=== PATIENT | female | born 1970 | race Caucasian/White ===

== ENCOUNTER 2016-06-25 21:25 | Emergency (ER) | payer OTHER ==
[2016-06-25] MEDS ORDERED: KETOROLAC 60 MG/2 ML VIAL IM STA (23:05)
--- NOTE | 2016-06-25 23:08 | ED ---
Back Pain HPI - General Chief Complaint: Back Pain/Injury Stated Complaint: back and hip pain Time Seen by Provider: 06/25/16 22:48 Source: patient, RN notes reviewed Limitations: no limitations - History of Present Illness Initial Comments: Patient is a 46-year-old female presents emergency room for evaluation of left- sided low back pain. Patient states the pain began a few days ago. Patient states she was up heavy box at work began having worsening pain. Patient states she stands for 10 hours during the day which does not help her pain. Patient states she has been taking ibuprofen with no relief of symptoms. Patient states the pain starts in the left side of her lower back that radiates down into her groin. Patient has no significant tingling going down her legs. Patient denies saddle anesthesia. Patient denies urinary or fecal incontinence. Patient denies recent fall or trauma to her back. Patient denies weakness. Patient states the pain is worse with movement. Patient denies pain or burning during urination, trouble urinating or blood in urine. Patient denies history of kidney stones. Patient denies nausea or vomiting. Patient denies abdominal pain. - Related Data Home Medications Medication Instructions Recorded Confirmed Calcium Carbonate [Tums] 500 mg PO BID PRN 06/25/16 06/25/16 Ibuprofen [Motrin] 600 mg PO TID 06/25/16 06/25/16 Loratadine [Claritin] 10 mg PO DAILY 06/25/16 06/25/16 Propranolol HCl 80 mg PO BID 06/25/16 06/25/16 Previous Rx's Medication Instructions Recorded predniSONE 50 mg PO DAILY 4 Days 06/26/16 traMADol HCl [Ultram] 50 mg PO Q4H PRN #15 tab 06/26/16 Allergies Allergy/AdvReac Type Severity Reaction Status Date / Time No Known Allergies Allergy Verified 06/25/16 22:51 Review of Systems ROS Statement: Those systems with pertinent positive or pertinent negative responses have been documented in the HPI. ROS Other: All systems not noted in ROS Statement are negative. Past Medical History Past Medical History: Rheumatoid Arthritis (RA) Additional Past Medical History / Comment(s): palpitations History of Any Multi-Drug Resistant Organisms: None Reported Past Surgical History: Section Past Psychological History: Anxiety Smoking Status: Current every day smoker Past Alcohol Use History: None Reported Past Drug Use History: None Reported General Exam - General Exam Comments Initial Comments: Standing up in exam room uncomfortable secondary to pain, no acute distress. Limitations: no limitations General appearance: alert, in no apparent distress Head exam: Present: atraumatic, normocephalic, normal inspection Eye exam: Present: normal appearance ENT exam: Present: normal exam Neck exam: Present: normal inspection Respiratory exam: Present: normal lung sounds bilaterally. Absent: respiratory distress Cardiovascular Exam: Present: regular rate, normal rhythm, normal heart sounds Back exam: Present: paraspinal tenderness (Left-sided lumbosacral paraspinal tenderness on palpation.) Neurological exam: Present: alert, oriented X3, CN II-XII intact, normal gait Psychiatric exam: Present: normal affect, normal mood Skin exam: Present: warm, dry, intact, normal color. Absent: rash Course Vital Signs 06/25/16 06/26/16 21:55 00:42 Temperature 99.3 F 98.0 F Pulse Rate 89 70 Respiratory 20 18 Rate Blood Pressure 130/80 132/70 O2 Sat by Pulse 95 99 Oximetry Medical Decision Making - Medical Decision Making Patient is a 46-year-old female presents emergency room for evaluation of left- sided low back pain. Patient has no neuro deficits. Patient has slight relief after medications given. Will send patient home with prednisone and Ultram as needed for pain. Advised patient to follow-up with her primary care provider for further evaluation if symptoms are not improving. Advised patient to return for signs of bladder or bowel incontinence or saddle anesthesia. Patient states she understands everything that was discussed with her. Return parameters discussed. Case discussed with Dr. Munoz. - Lab Data Lab Results 06/25/16 06/25/16 Range/Units 23:23 23:23 Urine Color Yellow Urine Appearance Cloudy H (Clear) Urine pH 5.5 (5.0-8.0) Ur Specific [place] 1.027 (1.001-1.035) Urine Protein Trace H (Negative) Urine Glucose (UA) Negative (Negative) Urine Ketones Trace H (Negative) Urine Blood Negative (Negative) Urine Nitrite Negative (Negative) Urine Bilirubin Negative (Negative) Urine Urobilinogen <2.0 (<2.0) mg/dL Ur Leukocyte Esterase Large H (Negative) Urine RBC 11 H (0-5) /hpf Urine WBC 3 (0-5) /hpf Ur Squamous Epith Cells 16 H (0-4) /hpf Urine Bacteria Rare H (None) /hpf Urine Mucus Rare H (None) /hpf Urine HCG, Qual Not Detected (Not Detectd) - Radiology Data Radiology results: report reviewed, image reviewed Disposition Clinical Impression: Low back strain Disposition: HOME SELF-CARE Condition: Good Instructions: Acute Low Back Pain (ED) Additional Instructions: Take pain medications as directed. Ultimate ice and warm compresses. Please follow up with primary care provider in 1-2 days. If any new symptom arises or symptoms worsen, return to ER as soon as possible. Prescriptions: predniSONE 50 mg PO DAILY 4 Days traMADol HCl [Ultram] 50 mg PO Q4H PRN #15 tab PRN Reason: Pain Referrals: None,Stated [Primary Care Provider] - 1-2 days Time of Disposition: 00:30
[2016-06-25] MEDS: methylPREDNISolone SOD SUCCI 125 MG/2 ML VIAL IV STA ×2 (23:15→23:19)
[2016-06-25] MEDS ORDERED: methylPREDNISolone SOD SUCCI 125 MG/2 ML VIAL IM ONE (23:18)
[2016-06-25 23:35] LABS: Appearance,Urine Cloudy (Clear); Bacteria,Urine Rare /hpf; Bilirubin,Urine Negative (Negative); Glucose,Urine (UA) Negative (Negative); Ketones,Urine Trace (Negative); Leukocyte Esterase,Urine Large (Negative); Mucus,Urine Rare /hpf; Nitrite,Urine Negative (Negative); PH, Urine 5.5 (5.0-8.0); Particle Count 8419; Protein,Urine Trace (Negative); RBC,Urine 11 /hpf (0-5); Specific Gravity,Urine 1.027 (1.001-1.035); Squamous Epithelial Cell,Urine 16 /hpf (0-4); UA Billing (MACRO vs. MICRO) MICRO; Urobilinogen,Urine <2.0 mg/dL (<2.0); WBC,Urine 3 /hpf (0-5)
--- NOTE | 2016-06-26 00:23 | XR ---
EXAM: XR Lumbar Spine, 4 or 5 Views. CLINICAL HISTORY: Reason: Pain TECHNIQUE: Frontal, lateral and oblique views of the lumbar spine. COMPARISON: No relevant prior studies available. FINDINGS: There are 5 nonrib-bearing lumbar type vertebra in normal alignment. Mild compression deformities at the L1 and L2 levels are likely chronic, but clinical correlation is advised. Multilevel disc degeneration is more pronounced in the upper lumbar and lower thoracic spine with disc space narrowing and endplate osteophytic spurring. Soft tissues are unremarkable. IMPRESSION: Mild L1 and L2 compression deformities are likely chronic, but clinical correlation is recommended. Lower thoracic and upper lumbar spinal disc degeneration.
[2016-06-26 00:42] VITALS: BP 132/70; PULSE 70; RESP 18; TEMP 98
== END 2016-06-26 00:42 | disposition home or self-care (01) ==
LOC: EC 21:25
DX: S39.012A Strain of muscle, fascia and tendon of lower back, initial encounter (principal); M25.552 Pain in left hip; R10.32 Left lower quadrant pain; M06.9 Rheumatoid arthritis, unspecified; F17.200 Nicotine dependence, unspecified, uncomplicated; Z79.1 Long term (current) use of non-steroidal anti-inflammatories (NSAID); Z79.899 Other long term (current) drug therapy; Z86.79 Personal history of other diseases of the circulatory system; X50.0XXA Overexertion from strenuous movement or load, initial encounter; Y92.69 Other specified industrial and construction area as the place of occurrence of the external cause
CPT/HCPCS: 81001; 81025; 72110; 99283; 96372 ×2; J2930; J1885

== ENCOUNTER 2016-06-27 21:11 | Emergency (ER) | payer OTHER ==
[2016-06-27] MEDS ORDERED: HYDROmorphone 1 MG/ML 1 ML SYRINGE IM STA (22:25)
[2016-06-27] MEDS ORDERED: ORPHENADRINE 30 MG/ML 2 ML VIAL IM STA (22:26)
--- NOTE | 2016-06-27 23:39 | XR ---
EXAM: XR Left Knee, 3 views CLINICAL HISTORY: Reason: Pain TECHNIQUE: Multiple views (6 images) of the left knee. COMPARISON: No relevant prior studies available. FINDINGS: Bones/joints: Unremarkable. No acute fracture. No dislocation. Soft tissues: Unremarkable. IMPRESSION: Normal left knee
--- NOTE | 2016-06-27 23:53 | XR ---
EXAM: XR Left Hip With Pelvis When Performed, 2 or 3 Views CLINICAL HISTORY: Reason: Pain TECHNIQUE: Multiple views of the left hip (4 images total submitted) COMPARISON: No relevant prior studies available. FINDINGS: Bones/joints: Unremarkable. No acute fracture. No dislocation. Soft tissues: Unremarkable. IMPRESSION: Normal left hip
--- NOTE | 2016-06-28 00:01 | ED ---
Fall HPI - General Chief Complaint: Fall Stated Complaint: Knee Pain/Slip and fall Time Seen by Provider: 06/27/16 22:17 Source: patient, RN notes reviewed, old records reviewed Mode of arrival: ambulatory - History of Present Illness Initial Comments: This is a 46 year old female with left knee pain and hip pain after falling in the shower. She states she was seen in the for acute back pain, was discharged with flexeril 2 days ago. She reports that is not helping. she states the pain is relieved best with standing and leaning over, she states tshe can bear weight on her leg. She denies any saddle anesthesias. She reports she fell on her knee and twister her back in maxi same movement. She reports pain is a 10/10. Domingo is worse with any pressure on the back. - Related Data Home Medications Medication Instructions Recorded Confirmed Ibuprofen [Motrin] 600 mg PO TID 06/25/16 06/27/16 Loratadine [Claritin] 10 mg PO DAILY 06/25/16 06/27/16 Propranolol HCl 80 mg PO BID 06/25/16 06/27/16 Previous Rx's Medication Instructions Recorded predniSONE 50 mg PO DAILY 4 Days 06/26/16 traMADol HCl [Ultram] 50 mg PO Q4H PRN #15 tab 06/26/16 HYDROcodone/APAP 10-325MG [[place] 1 tab PO Q6H PRN #15 tab 06/27/16 10-325] Allergies Allergy/AdvReac Type Severity Reaction Status Date / Time No Known Allergies Allergy Verified 06/27/16 22:22 Review of Systems ROS Statement: Those systems with pertinent positive or pertinent negative responses have been documented in the HPI. ROS Other: All systems not noted in ROS Statement are negative. Past Medical History Past Medical History: Rheumatoid Arthritis (RA) Additional Past Medical History / Comment(s): palpitations, migraines History of Any Multi-Drug Resistant Organisms: None Reported Past Surgical History: Section Past Psychological History: Anxiety Smoking Status: Current every day smoker Past Alcohol Use History: None Reported Past Drug Use History: None Reported General Exam - General Exam Comments Initial Comments: 46 year old female, in discomfort. Limitations: no limitations General appearance: alert, in no apparent distress Head exam: Present: atraumatic (d), normocephalic, normal inspection Eye exam: Present: normal appearance, PERRL, EOMI. Absent: scleral icterus, conjunctival injection, periorbital swelling ENT exam: Present: normal exam, mucous membranes moist Neck exam: Present: normal inspection. Absent: tenderness, meningismus, lymphadenopathy Respiratory exam: Present: normal lung sounds bilaterally. Absent: respiratory distress, wheezes, rales, rhonchi, stridor Cardiovascular Exam: Present: regular rate, normal rhythm, normal heart sounds. Absent: systolic murmur, diastolic murmur, rubs, gallop, clicks GI/Abdominal exam: Present: soft, normal bowel sounds. Absent: distended, tenderness, guarding, rebound, rigid Left Hip exam: Present: normal inspection, full ROM Upper Leg exam: Present: normal inspection, full ROM Knee exam: Present: normal inspection, tenderness. Absent: full ROM Lower Leg exam: Present: normal inspection, full ROM Ankle exam: Present: normal inspection, full ROM Foot/Toe exam: Present: normal inspection Neurovascular tendon exam: Present: no vascular compromise Back exam: Present: normal inspection Neurological exam: Present: alert, oriented X3, CN II-XII intact Psychiatric exam: Present: normal affect, normal mood Course Vital Signs 06/27/16 06/28/16 21:47 00:13 Temperature 99.4 F 98.1 F Pulse Rate 70 62 Respiratory 20 18 Rate Blood Pressure 174/79 134/86 O2 Sat by Pulse 100 99 Oximetry Medical Decision Making - Medical Decision Making 46 year old with left hip and knee painand back pain after falling out of the shower. WAs seen 2 days ago in for acute back pain, pain not managed with flexeril. Patient hip and knee xray are negative. Patient does have limited range of motion and unable to fully extend left knee. Patient placedin knee immobilizer. discussed follow up with orthopedic. Discussed taking norco for breakthough pain and to continue flexeril, motrin, and tylenol. Patient agrees to treatment plan and will comply. Disposition Clinical Impression: Knee sprain, Hip pain Disposition: HOME SELF-CARE Condition: Good Instructions: Knee Sprain (ED) Additional Instructions: Patient advised to follow up with orthopedic physician on thursday. Remain in knee immobilizer. Patient should rest, ice, and elevate extremety. Return to ER if worsening signs or symptoms occur. Prescriptions: HYDROcodone/APAP 10-325MG [[place] 10-325] 1 tab PO Q6H PRN #15 tab PRN Reason: Pain Referrals: Jane Evans MD [Primary Care Provider] - 1-2 days Mitchell Jansen MD [STAFF PHYSICIAN] - 1-2 days Time of Disposition: 23:59
[2016-06-28 00:16] VITALS: BP 134/86; PULSE 62; RESP 18; TEMP 98.1
[2016-06-28] MEDS ORDERED: HYDROcodone/APAP 7.5-325MG 1 EACH TAB PO ONE (00:26)
== END 2016-06-28 00:30 | disposition home or self-care (01) ==
LOC: EC 21:11
DX: S83.92XA Sprain of unspecified site of left knee, initial encounter (principal); M25.552 Pain in left hip; M06.9 Rheumatoid arthritis, unspecified; Z79.1 Long term (current) use of non-steroidal anti-inflammatories (NSAID); Z79.899 Other long term (current) drug therapy; W01.0XXA Fall on same level from slipping, tripping and stumbling without subsequent striking against object, initial encounter
CPT/HCPCS: 99283; 96372 ×2; 73502; 73562; J2360; J1170

== ENCOUNTER → 2016-10-10 | Outpatient (CLI) | payer OTHER ==
--- NOTE | 2016-10-20 09:55 | MM ---
Reason for exam: screening (asymptomatic). Last mammogram was performed 4 years and 1 month ago. Physical Findings: A clinical breast exam by your physician is recommended on an annual basis and results should be correlated with mammographic findings. MG Screening Mammo w CAD Bilateral CC and MLO view(s) were taken. Prior study comparison: August 29, 2012, mammogram, performed at [facility]. There are scattered fibroglandular densities. No significant changes when compared with prior studies. ASSESSMENT: Benign, BI-RAD 2 RECOMMENDATION: Routine screening mammogram of both breasts in 1 year.
== END | disposition home or self-care (01) ==
LOC: RADMAMWWP 13:51
PROVIDERS: ATTEND Family Medicine
DX: Z12.31 Encounter for screening mammogram for malignant neoplasm of breast (principal)

== ENCOUNTER 2017-01-23 15:38 | Emergency (ER) | payer OTHER ==
[2017-01-23] MEDS ORDERED: diphenhydrAMINE 50 MG/ML 1 ML VIAL IVP STA (16:52)
[2017-01-23] MEDS ORDERED: SODIUM CHLORIDE 0.9% 1,000 ML IV STA (16:52)
[2017-01-23] MEDS ORDERED: KETOROLAC 30 MG/ML 1 ML VIAL IVP STA (16:52)
[2017-01-23] MEDS ORDERED: METOCLOPRAMIDE 5 MG/ML 2 ML VIAL IVP STA (16:52)
--- NOTE | 2017-01-23 16:59 | ED ---
General Adult HPI - General Chief complaint: Headache Stated complaint: Headache/Vomiting Time Seen by Provider: 01/23/17 16:47 Source: patient, RN notes reviewed Mode of arrival: ambulatory Limitations: no limitations - History of Present Illness Initial comments: Patient 46-year-old female with a significant past medical history for migraines , who presents emergency room today with a chief complaint of migraine headache that began last night approximately midnight. Patient does admit that located in the front. Does admit to symptoms of nausea vomiting. Doesn't photosensitivity. States that symptoms are consistent migraines is had in the past. Denies any other complaints or associated symptoms currently. Patient denies any recent fever, chills, shortness of breath, chest pain, back pain, numbness or tingling, dysuria or hematuria, constipation or diarrhea, visual changes, or any other complaints. - Related Data Home Medications Medication Instructions Recorded Confirmed Ibuprofen [Motrin] 600 mg PO TID PRN 06/25/16 01/23/17 Propranolol HCl 80 mg PO DAILY 06/25/16 01/23/17 Cholecalciferol [Vitamin D3] 1,000 unit PO HS 01/23/17 01/23/17 Cyanocobalamin [Vitamin B-12] 500 mcg PO HS 01/23/17 01/23/17 Loratadine [Claritin] 10 mg PO DAILY 01/23/17 01/23/17 Vitamin E 30iu 30 units PO HS 01/23/17 01/23/17 buPROPion HCL [Wellbutrin XL] 300 mg PO DAILY 01/23/17 01/23/17 busPIRone HCl [Buspar] 10 mg PO BID 01/23/17 01/23/17 cloNIDine HCL [Catapres] 0.2 mg PO HS 01/23/17 01/23/17 Allergies Allergy/AdvReac Type Severity Reaction Status Date / Time No Known Allergies Allergy Verified 01/23/17 16:44 Review of Systems ROS Statement: Those systems with pertinent positive or pertinent negative responses have been documented in the HPI. ROS Other: All systems not noted in ROS Statement are negative. Past Medical History Past Medical History: Rheumatoid Arthritis (RA) Additional Past Medical History / Comment(s): palpitations, migraines History of Any Multi-Drug Resistant Organisms: None Reported Past Surgical History: Section Past Psychological History: Anxiety Smoking Status: Current every day smoker Past Alcohol Use History: None Reported Past Drug Use History: None Reported General Exam - General Exam Comments Initial Comments: General: The patient is awake and alert, in no distress, and does not appear acutely ill. Eye: Pupils are equal, round and reactive to light, extra-ocular movements are intact. No nystagmus. There is normal conjunctiva bilaterally. No signs of icterus. Ears, nose, mouth and throat: There are moist mucous membranes and no oral lesions. Neck: The neck is supple, there is no tenderness or JVD. Cardiovascular: There is a regular rate and rhythm. No murmur, rub or gallop is appreciated. Respiratory: Lungs are clear to auscultation, respirations are non-labored, breath sounds are equal. No wheezes, stridor, rales, or rhonchi. Gastrointestinal: Soft, non-distended, non-tender abdomen without masses or organomegaly noted. There is no rebound or guarding present. No CVA tenderness. Bowel sounds are unremarkable. Musculoskeletal: Normal ROM, no tenderness. Strength 5/5. Sensation intact. Pulses equal bilaterally 2+. Neurological: A&O x 3. CN II-XII intact, There are no obvious motor or sensory deficits. Coordination appears grossly intact. Speech is normal. Skin: Skin is warm and dry and no rashes or lesions are noted. Psychiatric: Cooperative, appropriate mood & affect, normal judgment. Limitations: no limitations Course Vital Signs 01/23/17 15:43 Temperature 97 F L Pulse Rate 83 Respiratory 18 Rate Blood Pressure 119/59 O2 Sat by Pulse 99 Oximetry Medical Decision Making - Medical Decision Making Patient reexamined at this time shows no signs of distress. Patient was given Reglan, Toradol, Benadryl along with saline bolus here in emergency room. Feeling much better at this time. She admits that she feels ready to be discharged. She states she will follow-up the family doctor. Advised to use ibuprofen for any rebound headaches. Advised return for any other concerns. Disposition Clinical Impression: Migraine Disposition: HOME SELF-CARE Condition: Good Instructions: Migraine Headache (ED) Additional Instructions: Please use medication as discussed. Please follow-up with family doctor in the next 2 days of symptoms have not improved. Please return to emergency room if the symptoms increase or worsen or for any other concerns. Referrals: Nonstaff,Physician [REFERRING] - 1-2 days Time of Disposition: 17:48
[2017-01-23 17:59] VITALS: BP 131/82; PULSE 72; RESP 156; TEMP 98.5
== END 2017-01-23 17:59 | disposition home or self-care (01) ==
LOC: EC 15:38
DX: G43.909 Migraine, unspecified, not intractable, without status migrainosus (principal); F41.9 Anxiety disorder, unspecified; F17.200 Nicotine dependence, unspecified, uncomplicated; Z79.899 Other long term (current) drug therapy
CPT/HCPCS: 99283; 96374; 96375 ×2; 96361; J1200; J2765; J1885

== ENCOUNTER → 2018-05-04 | Outpatient (CLI) | payer OTHER ==
[2018-05-04 10:48] LABS: Basophils # (A) 0.1 k/uL (0-0.2); Basophils % (A) 1 %; Eosinophils # (A) 0.5 k/uL (0-0.7); Eosinophils % (A) 5 %; HCT 40.5 % (34.0-46.0); HGB 12.7 gm/dL (11.4-16.0); Lymphocytes # (A) 1.9 k/uL (1.0-4.8); Lymphocytes % (A) 19 %; MCH 27.4 pg (25.0-35.0); MCHC 31.4 g/dL (31.0-37.0); MCV 87.3 fL (80.0-100.0); Mean Platelet Volume 6.8; Monocytes # (A) 0.4 k/uL (0-1.0); Monocytes % (A) 4 %; Neutrophils # (A) 6.9 k/uL (1.3-7.7); Neutrophils % (A) 69 %; Platelet Count 413 k/uL (150-450); RBC 4.64 m/uL (3.80-5.40); RDW 13.3 % (11.5-15.5); WBC 9.9 k/uL (3.8-10.6)
[2018-05-04 18:03] LABS: Albumin 4.3 g/dL (3.80-4.90); Albumin/Globulin Ratio 2.05 (1.60-3.17); Anion Gap 5.6 mmol/L (4.00-12.00); Calcium 9.2 mg/dL (8.7-10.3); Carbon Dioxide 24.4 mmol/L (21.6-31.8); Globulin 2.1 g/dL (1.6-3.3); LDL Cholesterol,Calculated 103.2 mg/dL (0.0-131.0); Potassium 4.7 mmol/L (3.5-5.5); Total Bilirubin 0.4 mg/dL (0.3-1.2); Total Protein 6.4 g/dL (6.2-8.2); VLDL Calculation 11.8 mg/dL (5.00-40.00)
== END | disposition home or self-care (01) ==
LOC: LABWHC1 10:04
PROVIDERS: ATTEND Nurse Practitioner
DX: G43.111 Migraine with aura, intractable, with status migrainosus (principal); M72.2 Plantar fascial fibromatosis; F41.0 Panic disorder [episodic paroxysmal anxiety]; R12 Heartburn; E66.01 Morbid (severe) obesity due to excess calories
CPT/HCPCS: 36415; 80053; 80061; 85025

== ENCOUNTER 2019-01-24 13:19 | Emergency (ER) | payer SELFPAY ==
[2019-01-24 13:37] VITALS: TEMP 97.7
[2019-01-24] MEDS ORDERED: METOCLOPRAMIDE 5 MG/ML 2 ML VIAL IVP STA (13:53)
[2019-01-24] MEDS ORDERED: diphenhydrAMINE 50 MG/ML 1 ML VIAL IVP STA (13:53)
[2019-01-24] MEDS ORDERED: KETOROLAC 30 MG/ML 1 ML VIAL IVP STA (13:53)
[2019-01-24] MEDS ORDERED: SODIUM CHLORIDE 0.9% 1,000 ML IV STA ×2 (13:53)
[2019-01-24] MEDS ORDERED: ORPHENADRINE 30 MG/ML 2 ML VIAL IVP STA (13:54)
--- NOTE | 2019-01-24 14:14 | ED ---
Headache HPI - General Source: RN notes reviewed, old records reviewed Mode of arrival: ambulatory Limitations: no limitations <Yumiko Tristanily - Last Filed: 01/24/19 14:59> <Rut Hughes - Last Filed: 01/29/19 14:28> - General Chief Complaint: Headache Stated Complaint: headache Time Seen by Provider: 01/24/19 13:38 - History of Present Illness Initial Comments: Alexia is a 40-year-old female presents today for evaluation for left-sided headache. She said history migraines past, states this is not the worse hea dache of her life. Patient states that she does feel slightly abnormal with tingling and numbness sensation over her arms, left side of her face. She denies any muscle weakness. She reports this occurred to be worse they want she was at work today. 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 (Ami Tristan) - Related Data Home Medications Medication Instructions Recorded Confirmed Ibuprofen [Motrin] 600 mg PO TID PRN 06/25/16 01/23/17 Propranolol HCl 80 mg PO DAILY 06/25/16 01/23/17 Cholecalciferol [Vitamin D3] 1,000 unit PO HS 01/23/17 01/23/17 Cyanocobalamin [Vitamin B-12] 500 mcg PO HS 01/23/17 01/23/17 Loratadine [Claritin] 10 mg PO DAILY 01/23/17 01/23/17 Vitamin E 30iu 30 units PO HS 01/23/17 01/23/17 buPROPion HCL [Wellbutrin XL] 300 mg PO DAILY 01/23/17 01/23/17 busPIRone HCl [Buspar] 10 mg PO BID 01/23/17 01/23/17 cloNIDine HCL [Catapres] 0.2 mg PO HS 01/23/17 01/23/17 Previous Rx's Medication Instructions Recorded Metoclopramide [Reglan] 10 mg PO ACHS #12 tab 01/24/19 Allergies Allergy/AdvReac Type Severity Reaction Status Date / Time No Known Allergies Allergy Verified 01/24/19 13:37 Review of Systems ROS Other: All systems not noted in ROS Statement are negative. <Ami Tristan - Last Filed: 01/24/19 14:59> ROS Other: All systems not noted in ROS Statement are negative. <Rut Hughes - Last Filed: 01/29/19 14:28> ROS Statement: Those systems with pertinent positive or pertinent negative responses have been documented in the HPI. Past Medical History Past Medical History: Rheumatoid Arthritis (RA) Additional Past Medical History / Comment(s): palpitations, migraines History of Any Multi-Drug Resistant Organisms: None Reported Past Surgical History: Section Past Psychological History: Anxiety Smoking Status: Current every day smoker Past Alcohol Use History: None Reported Past Drug Use History: None Reported <Ami Tristan - Last Filed: 01/24/19 14:59> General Exam Limitations: no limitations Head exam: Present: atraumatic, normocephalic, normal inspection Eye exam: Present: normal appearance, PERRL, EOMI. Absent: scleral icterus, conjunctival injection, periorbital swelling ENT exam: Present: normal exam, mucous membranes moist Neck exam: Present: normal inspection. Absent: tenderness, meningismus, lymphadenopathy Respiratory exam: Present: normal lung sounds bilaterally. Absent: respiratory distress, wheezes, rales, rhonchi, stridor Cardiovascular Exam: Present: regular rate GI/Abdominal exam: Present: soft, normal bowel sounds. Absent: distended, tenderness, guarding, rebound, rigid Extremities exam: Present: normal inspection, full ROM, normal capillary refill. Absent: tenderness, pedal edema, joint swelling, calf tenderness Back exam: Present: normal inspection Neurological exam: Present: alert, oriented X3, CN II-XII intact Expanded Patient oriented to: Present: person, place, time Speech: Present: fluid speech Cranial nerves: EOM's Intact: Normal Cerebellar function: Finger to Nose: Normal Upper motor neuron: Pronator Drift: Normal Sensory exam: Upper Extremity Light Touch: Normal (Plans the paresthesias over her upper extremities but her ports that she can feel me touch of her fingers and hands.), Lower Extremity Light Touch: Normal Motor strength exam: RUE: 5, LUE: 5, RLE: 5, LLE: 5 Eye Response: (4) open spontaneously Motor Response: (6) obeys commands Verbal Response: (5) oriented Gabino Total: 15 Psychiatric exam: Present: normal affect, normal mood Skin exam: Present: warm, dry, intact, normal color <Ami Tristan - Last Filed: 01/24/19 14:59> - General Exam Comments Initial Comments: 48-year-old female. Alert and oriented. No distress. (Ami Tristan) Course Vital Signs 01/24/19 01/24/19 13:35 15:57 Temperature 97.7 F Pulse Rate 78 67 Respiratory 18 16 Rate Blood Pressure 135/71 133/79 O2 Sat by Pulse 99 100 Oximetry Medical Decision Making - Lab Data Result diagrams: 01/24/19 14:06 01/24/19 14:06 - Radiology Data Radiology results: report reviewed <Ami Tristan - Last Filed: 01/24/19 14:59> - Lab Data Result diagrams: 01/24/19 14:06 01/24/19 14:06 <Rut Hughes - Last Filed: 01/29/19 14:28> - Medical Decision Making Is a 40-year-old female presents today with complaints of a headache, starting last night into this morning. Continue [id number] medications on a relief. She lives in some paresthesias over her hands and face were also concerned that this possibly was related to anxiety. She no focal or neurological deficits. Patient was given IV fluids of migraine cocktail. On reevaluation she is resting comfortably in bed and complains of no other symptoms. CT brain completed and negative for acute process. I discussed the Patient can follow-up with her primary care doctor or the Patient for nausea medicine as needed for any further migraine headaches tend treatment. Discussed prompt follow-up with her primary care doctor. All questions were answered. (HaileyAmi kuo) I was available for consultation in the emergency department. The history and physical exam were done by the midlevel provider. I was consulted for this patients care. I reviewed the case with the midlevel provider and based on their presentation of the patient, I agree with the assessment, medical decision making and plan of care as documented. Chart was dictated using [employer] dictation software. Attempts were made to correct any dictation errors however some typographical errors may persist. (Rut Hughes) - Lab Data Lab Results 01/24/19 01/24/19 01/24/19 Range/Units 14:06 14:06 14:06 WBC 9.6 (3.8-10.6) k/uL RBC 4.47 (3.80-5.40) m/uL Hgb 13.2 (11.4-16.0) gm/dL Hct 39.5 (34.0-46.0) % MCV 88.4 (80.0-100.0) fL MCH 29.4 (25.0-35.0) pg MCHC 33.3 (31.0-37.0) g/dL RDW 12.7 (11.5-15.5) % Plt Count 441 (150-450) k/uL PT 9.7 (9.0-12.0) sec INR 0.9 (<1.2) APTT 26.1 (22.0-30.0) sec Sodium 141 (137-145) mmol/L Potassium 3.8 (3.5-5.1) mmol/L Chloride 107 (98-107) mmol/L Carbon Dioxide 25 (22-30) mmol/L Anion Gap 9 mmol/L BUN 17 (7-17) mg/dL Creatinine 0.94 (0.52-1.04) mg/dL Est GFR (CKD-EPI)AfAm 83 (>60 ml/min/1.73 sqM) Est GFR (CKD-EPI)NonAf 72 (>60 ml/min/1.73 sqM) Glucose 113 H (74-99) mg/dL Calcium 9.7 (8.4-10.2) mg/dL Total Bilirubin 0.4 (0.2-1.3) mg/dL AST 28 (14-36) U/L ALT 29 (9-52) U/L Alkaline Phosphatase 58 (38-126) U/L Total Protein 7.5 (6.3-8.2) g/dL Albumin 4.5 (3.5-5.0) g/dL - Radiology Data CT of the brain is negative for any acute process. (Ami Tristan) Disposition Is patient prescribed a controlled substance at d/c from ED?: No Time of Disposition: 15:02 <Ami Tristan - Last Filed: 01/24/19 14:59> <Rut Hughes - Last Filed: 01/29/19 14:28> Clinical Impression: Migraine Disposition: HOME SELF-CARE Condition: Good Instructions (If sedation given, give patient instructions): Acute Headache (ED) Additional Instructions: Patient advised to rest, remain hydrated. Alternate between Motrin and Tylenol for headache. Follow-up with your primary care physician. Return to the emergency department if any alarming signs or symptoms occur. Prescriptions: Metoclopramide [Reglan] 10 mg PO ACHS #12 tab Referrals: None,Stated [Primary Care Provider] - 1-2 days Paula Sung MD [STAFF PHYSICIAN] - 1-2 days
[2019-01-24 14:23] LABS: HCT 39.5 % (34.0-46.0); HGB 13.2 gm/dL (11.4-16.0); MCH 29.4 pg (25.0-35.0); MCHC 33.3 g/dL (31.0-37.0); MCV 88.4 fL (80.0-100.0); Mean Platelet Volume 7.1; Platelet Count 441 k/uL (150-450); RBC 4.47 m/uL (3.80-5.40); RDW 12.7 % (11.5-15.5); WBC 9.6 k/uL (3.8-10.6)
--- NOTE | 2019-01-24 14:31 | CT ---
EXAMINATION TYPE: CT brain wo con DATE OF EXAM: 01/24/2019 COMPARISON: None HISTORY: Dizziness and headache CT DLP: 1052.[address] of the brain was performed. The ventricles, basal cisterns and sulci overlying the cerebral convexities demonstrate a normal appe arance. There is no evidence for intracranial hemorrhage or sulcal effacement. No mass effects are seen. Osseous calvarium is intact. If symptoms persist consider MRI as clinically warranted. IMPRESSION: 1. No acute intracranial process is seen at this time.
[2019-01-24 14:33] LABS: Albumin 4.5 g/dL (3.5-5.0); Calcium 9.7 mg/dL (8.4-10.2); Potassium 3.8 mmol/L (3.5-5.1); Total Bilirubin 0.4 mg/dL (0.2-1.3); Total Protein 7.5 g/dL (6.3-8.2)
[2019-01-24 14:39] LABS: INR 0.9 (<1.2); Partial Thromboplastin Time 26.1 sec (22.0-30.0); Prothrombin Time 9.7 sec (9.0-12.0)
[2019-01-24 15:59] VITALS: BP 133/79; PULSE 67; RESP 16
== END 2019-01-24 15:59 | disposition home or self-care (01) ==
LOC: EC 13:19
DX: G40.909 Epilepsy, unspecified, not intractable, without status epilepticus (principal); R20.2 Paresthesia of skin; F41.9 Anxiety disorder, unspecified; M06.9 Rheumatoid arthritis, unspecified; F17.200 Nicotine dependence, unspecified, uncomplicated; Z79.899 Other long term (current) drug therapy
CPT/HCPCS: 36415; 80053; 85027; 85610; 85730; 70450; 99284; 96374; 96375 ×3; 96361; J1200; J2360; J2765; J1885

== ENCOUNTER → 2019-07-13 | Outpatient (CLI) | payer MEDICAID | END | disposition home or self-care (01) | LOC: LABWHC1 13:52 | PROVIDERS: ATTEND Pediatrics Pediatric Infectious Diseases | DX: U07.1 COVID-19 (principal) | CPT/HCPCS: 87635 ==

== ENCOUNTER → 2021-01-23 | Outpatient (CLI) | payer MEDICAID, OTHER | END | disposition home or self-care (01) | LOC: LABWHC1 10:57 | PROVIDERS: ATTEND Emergency Medicine | DX: Z20.822 Contact with and (suspected) exposure to COVID-19 (principal) | CPT/HCPCS: 87635 ==

== ENCOUNTER → 2021-01-24 | Outpatient (CLI) | payer MEDICAID, OTHER | END | disposition home or self-care (01) | LOC: LABMAIN 12:40 | PROVIDERS: ATTEND Emergency Medicine | DX: Z20.822 Contact with and (suspected) exposure to COVID-19 (principal) | CPT/HCPCS: 87635 ==

== ENCOUNTER → 2021-04-08 | Outpatient (CLI) | payer MEDICAID ==
[2021-04-08 11:12] LABS: Hepatitis A Antibody IgM Nonreactive (Nonreactive); Hepatitis B Core IgM Nonreactive (Nonreactive); Hepatitis C IgG Antibody Nonreactive (Nonreactive)
[2021-04-08 11:52] LABS: HCT 40.1 % (37.2-46.3); MCH 28.1 pg (27.0-32.0); MCHC 32.4 g/dL (32.0-37.0); MCV 86.8 fL (80.0-97.0); Mean Platelet Volume 10.9 fL (9.5-12.2); NRBC Per 100 WBC 0 /100 WBCS (0.0-0.0); Platelet Count 389 X 10*3/uL (140-440); RBC 4.62 X 10*6/uL (4.10-5.20); RDW 13.4 % (11.5-14.5); WBC 8.54 X 10*3/uL (4.50-10.00)
[2021-04-08 12:32] LABS: ALT 24 U/L (8-44); AST 24 U/L (13-35); African American GFR (CKD) 85.8 (60.0-200.0); Albumin 4.3 g/dL (3.8-4.9); Albumin/Globulin Ratio 1.87 (1.60-3.17); Alkaline Phosphatase 45 U/L (41-126); BUN/Creat Ratio 19.44 Ratio (12.00-20.00); Blood Urea Nitrogen 17.5 mg/dL (9.0-27.0); Calcium 9.4 mg/dL (8.7-10.3); Carbon Dioxide 21.9 mmol/L (20.0-27.5); Chloride 106 mmol/L (96-109); Chol/HDL Ratio 2.88 Ratio; Globulin 2.3 g/dL (1.6-3.3); Glucose 104 mg/dL (70-110); LDL Cholesterol,Calculated 102.7 mg/dL (0.0-131.0); Potassium 4.6 mmol/L (3.5-5.5); Sodium 140 mmol/L (135-145); Total Bilirubin <0.20 mg/dL (0.30-1.20); Total Protein 6.6 g/dL (6.2-8.2)
[2021-04-08 13:04] LABS: Rheumatoid Factor, Qnt <10 IU/mL (0-15)
[2021-04-08 13:36] LABS: % Iron Saturation 12.25 (12.00-45.00); Iron 49 ug/dL (50-170); Total Iron Binding Capacity 403 ug/dL (228-460)
[2021-04-08 13:47] LABS: C Reactive Protein <0.30 mg/dL (0.00-0.80)
[2021-04-08 15:52] LABS: Erythrocyte Sedimentation Rate 9 mm/Hr (0-30)
== END | disposition home or self-care (01) ==
LOC: LABWHC1 07:31
PROVIDERS: ATTEND Nurse Practitioner Family
DX: E61.1 Iron deficiency (principal); E55.9 Vitamin D deficiency, unspecified; E78.00 Pure hypercholesterolemia, unspecified; M25.50 Pain in unspecified joint; R73.01 Impaired fasting glucose; R53.83 Other fatigue; Z79.899 Other long term (current) drug therapy
CPT/HCPCS: 36415; 80053; 80061; 82306; 83036; 83540; 83550; 84443; 85027; 85652; 86038; 86140; 86431; 86705; 86709; 86803

== ENCOUNTER → 2022-08-05 | Outpatient (CLI) | payer MEDICAID ==
[2022-08-05 11:14] LABS: ALT 34 U/L; AST 23 U/L; Albumin 4.4 d/dL; Albumin/Globulin Ratio 1.63 Ratio; Alkaline Phosphatase 51 U/L; BUN/Creat Ratio 18.67 Ratio; Blood Urea Nitrogen 16.8 mg/dL; Calcium 9.5 mg/dL; Carbon Dioxide 24.9 mmol/L; Chloride 104 mmol/L; Chol/HDL Ratio 2.99 Ratio; Globulin 2.7 d/dL; Glucose 107 mg/dL; LDL Cholesterol,Calculated 104.7 mg/dL; Potassium 4.8 mmol/L; Sodium 140 mmol/L; Total Bilirubin 0.4 mg/dL; Total Protein 7.1 d/dL
== END | disposition home or self-care (01) ==
LOC: LABWHC1 07:03
PROVIDERS: ATTEND Nurse Practitioner
DX: Z00.00 Encounter for general adult medical examination without abnormal findings (principal); F41.9 Anxiety disorder, unspecified; R51.9 Headache, unspecified
CPT/HCPCS: 36415; 80053; 80061; 83036; 84443

== ENCOUNTER → 2022-10-15 | Outpatient (CLI) | payer OTHER ==
--- NOTE | 2022-10-15 10:25 | XR ---
EXAMINATION TYPE: XR knee complete RT DATE OF EXAM: 10/15/2022 COMPARISON: None HISTORY: Sudden sharp pain TECHNIQUE: 3 view right knee FINDINGS: Minimal medial and lateral tibial plateau spurs and medial and lateral femoral condylar spu rs are noted. No joint effusion is evident. Tiny posterior patellar spurs are present superiorly and inferiorly. No acute fractures are evident. Joint spaces appear preserved. Follow up exams can be performed as cl inically indicated. MRI can be performed if clinically indicated. IMPRESSION: 1. No acute osseous abnormality radiographically apparent. 2. Minimal degenerative joint changes right knee
== END | disposition home or self-care (01) ==
LOC: RADXRMAIN 09:31
PROVIDERS: ATTEND Emergency Medicine
DX: S83.91XA Sprain of unspecified site of right knee, initial encounter (principal); M17.11 Unilateral primary osteoarthritis, right knee; X58.XXXA Exposure to other specified factors, initial encounter

== ENCOUNTER → 2022-10-21 | Outpatient (CLI) | payer OTHER ==
--- NOTE | 2022-10-21 13:20 | MR ---
EXAMINATION TYPE: MR knee RT wo con DATE OF EXAM: 10/21/2022 COMPARISON: None HISTORY: Rt knee pain TECHNIQUE: Multiplanar, multisequence imaging of the right knee is performed without IV contrast. FINDINGS: MEDIAL MENISCUS: Anterior and posterior horns are intact without tear. LATERAL MENISCUS: Anterior and posterior horns are intact without tear. CRUCIATE LIGAMENTS: The anterior and posterior cruciate ligaments are intact and unremarkable. COLLATERAL LIGAMENTS: The medial collateral ligament and lateral collateral ligament complex are inta ct and unremarkable. EXTENSOR MECHANISM: Visualized quadriceps and patellar tendons are intact. EFFUSION: Small patellar joint effusion noted. POPLITEAL CYST: No popliteal/roman cyst. TRICOMPARTMENT SPACES: Moderate medial tibiofemoral joint space narrowing and patellofemoral joint sp ronald narrowing. Spur formation about the margins of the femoral condyles and tibial plateaus. CARTILAGE: Small chondral defect medial femoral condyle. BONE MARROW SIGNAL: No focal abnormal marrow signal is appreciated. OTHER: No additional significant abnormality is appreciated. IMPRESSION: 1. Changes of osteoarthritis. Small chondral defect medial femoral condyle.
== END | disposition home or self-care (01) ==
LOC: RADMRIMAIN 11:02
PROVIDERS: ATTEND Emergency Medicine
DX: M17.11 Unilateral primary osteoarthritis, right knee (principal); S83.91XD Sprain of unspecified site of right knee, subsequent encounter; X58.XXXD Exposure to other specified factors, subsequent encounter